=== PATIENT | male | born 1965 | race Caucasian/White ===

== ENCOUNTER 2017-05-05 14:11 | Emergency (ER) | payer OTHER ==
[2017-05-05] MEDS ORDERED: ALBUTEROL SO4 2.5/IPRATROPIUM 0.5 INH SOL 3 ML VIAL.NEB. NEB ONE (14:32)
[2017-05-05 14:42] VITALS: BMI 25.0
--- NOTE | 2017-05-05 14:44 | PDOC ---
Attending Attestation - Resident Resident Name: Batool Corona - ED Attending Attestation I have performed the following: I have examined & evaluated the patient, The case was reviewed & discussed with the resident, I agree w/resident's findings & plan, Exceptions are as noted - HPI HPI: 05/05/17 14:37 51y M hx of ESRD, s/p kidney resection presents for evaluation of AMS. Unclear onset, was noted to be hypotensive by EMS, but was normotensive on arrival, and was alert,m answering questions approrpitaely but was noted to be hypoxic down to 80s with wheezing/and rales at RLB. pt does endorse cough for a few days. denie sfever/chills, endorses persistent LLQ abd pain that is unchanged form prior. ROS limited due to clijical status GENERAL: The patient is alert, and fully oriented, tachypneic HEAD: Normocephalic, atraumatic. EYES: extraocular movements intact, sclera anicteric, conjunctiva clear. ENT: Normal voice, dry mucous membranes. NECK: Normal range of motion, supple LUNGS: wheezing b/l rales at R base HEART: Regular rate and rhythm, normal S1 and S2 without murmur, rub or gallop. ABDOMEN: ecchymosis with heeling scar on LLQ with tenderness, +flank ecchymosis , slightly warm to the touch over area of tenderness EXTREMITIES: Normal range of motion, no edema. NEUROLOGICAL: No facial assymetry, Normal speech, SKIN: Warm, Dry, normal turgor, ddx includes pna, atelectasis, anemia w/ high output heart failure, pe will ck albs will start pt on bipap and duonebs will reasses 05/05/17 16:37 pt noted anemic to 6.6, pt written for PRBCs awaiting CT, but I suspect his anemia may be secondary to post ob bleeding - will likely need surgical consult/transfer back to site pt currently hemodynamically stable, but +symtomatic anemia CRITICAL CARE DOCUMENTATION: I spent ~35 minutes of Critical Care time, excluding separately billable procedures, involving high complexity decision making to assess, manipulate and support vital system function(s) to treat single or multiple vital organ system failure and/or to prevent further life threatening deterioration of the patient' s condition. - Physicial Exam PE: 05/11/17 15:26 see above - Medical Decision Making 05/11/17 15:29 adrian whaley
--- NOTE | 2017-05-05 14:46 | PDOC ---
History of Present Illness - General Chief Complaint: Respiratory Distress Stated Complaint: WEAKNESS,SKIN DISCOLOR Time Seen by Provider: 05/05/17 14:35 - History of Present Illness Initial Comments: 05/05/17 14:45 51 y.o. male with a PMH of ESRD (on HD MWF), Seizure disorder (cannot recall last seizure activity) as well as recent (04/2017) L sided nephrectomy presents from [facility] c/o weakness, lightheadness and < 1 minute witnessed LOC. At presentation patient unable to provide HPI -- hypoxic to SpO2 80's. Past History - Past Medical History Allergies/Adverse Reactions: Allergies Allergy/AdvReac Type Severity Reaction Status Date / Time piperacillin [From Zosyn] Allergy Unknown Verified 05/05/17 15:32 tazobactam [From Zosyn] Allergy Unknown Verified 05/05/17 15:32 Home Medications: Ambulatory Orders Aspirin [ASA -] 81 mg PO DAILY #0 05/05/16 Famotidine 20 mg PO DAILY #0 05/05/16 Sevelamer Carbonate [Renvela -] 4 tab PO TID #0 05/05/16 Albuterol Sulfate [Proair Respiclick] 180 mcg IH Q6H PRN 05/05/17 Amlodipine Besylate 5 mg PO ASDIR 05/05/17 B-Complex with Vitamin C [Super B Complex-Vitamin C] 1 each PO DAILY 05/05/17 Docusate Sodium [Colace -] 100 mg PO TID 05/05/17 Ferrous Sulfate [Feosol] 325 mg PO DAILY 05/05/17 Folic Acid 1 mg PO DAILY 05/05/17 Labetalol HCl [Normodyne -] 200 mg PO BID 05/05/17 Levetiracetam 250 mg PO MOWEFR 05/05/17 traZODone HCL [Desyrel -] 50 mg PO HS 05/05/17 COPD: No Dialysis: Yes ([facility] (M-W-F)) Disorders: (ESRD-DIALYSIS: M/W/F) HTN: Yes Psychiatric Problems: Yes (DEPRESSION.) - Suicide/Smoking/Psychosocial Hx Smoking History: Never smoked Hx Alcohol Use: No Drug/Substance Use Hx: No Substance Use Type: None Review of Systems - Review of Systems Able to Perform ROS?: No *Physical Exam - Vital Signs Last Vital Signs Temp Pulse Resp BP Pulse Ox 98.1 F 80 16 113/81 80 L 05/05/17 14:35 05/05/17 14:35 05/05/17 14:35 05/05/17 14:35 05/05/17 14:35 - Physical Exam General Appearance: Yes: Obese, Other (toxic, rayo UE) HEENT: positive: EOMI, CAESAR. negative: TM Bulging, TM Dull, TM Erythema Neck: positive: Trachea midline, Supple Respiratory/Chest: positive: Labored Respiration, Wheezing (R > L). negative: Crackles, Rales Cardiovascular: positive: S1, S2. negative: JVD, Murmur Vascular Pulses: Dorsalis-Pedis (R): 2+, Doralis-Pedis (L): 2+ Gastrointestinal/Abdominal: positive: Tender, Soft, Other (LLQ surgical scar, LUQ surgical scar, L flank eccymosis) Male Genitalia: negative: inguinal hernia Musculoskeletal: positive: CVA Tenderness (L). negative: CVA Tenderness (R) Extremity: positive: Coldness Integumentary: positive: Dry, Cold, Clammy Neurologic: positive: Fully Oriented, Alert ED Treatment Course - LABORATORY CBC & Chemistry Diagram: 05/05/17 15:20 05/05/17 14:46 - RADIOLOGY Radiology Studies Ordered: Category Date Time Status CHEST X-RAY PORTABLE* [RAD] Stat Radiology 05/05/17 14:36 Ordered Medical Decision Making - Medical Decision Making 05/05/17 16:57 51 y.o. male presents with dyspnea. At presentation patient hypoxic SpO2 80' s. Patient started on BIPAP. CT Abdomen showed hemoperitoneum. Patient became hypotensive SPB 80's -- while awaiting transfusion. As T&S pending, patient given 2 unit O Negative Blood. Case d/w Dr. Escobedo (covering for patient' s urologist Dr. Mills) patient accepted for transfer. Rationale for transfer patient is 1 week post-operative from [facility] urologist. Case d/w Dr. Mcfadden and Dr. Amin from ED -- Dr. Mcfadden to accept patient @ ED. At discharge patient' s SBP improved to 100. Patient transferred to [facility]. *DC/Admit/Observation/Transfer Diagnosis at time of Disposition: Hemoperitoneum - Referrals Referrals: Isac Noland [Primary Care Provider] - - Patient Instructions - Post Discharge Activity
[2017-05-05 15:31] LABS: BASO % 0.5 % (0-2.0); HEMATOCRIT 20.6 % (35.4-49); LYMPH % 7.1 % (8-40); MCH 27.7 pg (25.7-33.7); MCHC 32.3 g/dl (32.0-35.9); MEAN CELL VOLUME 85.9 fl (80-96); MEAN PLT VOLUME 9.5 fl (7.5-11.1); MONO % 10.9 % (3.8-10.2); NEUT % 77.5 % (42.8-82.8); PLATELET COUNT 274 K/MM3 (134-434); RDW 16.3 % (11.9-15.9); WHITE BLOOD COUNT 6.4 K/mm3 (4.0-10.0)
[2017-05-05 15:54] LABS: INR 1.19 (0.82-1.09); PROTHROMBIN TIME (PATIENT) 13.4 SEC (9.98-11.88)
[2017-05-05 15:57] LABS: ACTIVATED PTT 26.4 SECONDS (26.9-34.4)
[2017-05-05 15:58] LABS: HEMOGLOBIN 6.6 GM/dL (11.7-16.9)
[2017-05-05 16:12] LABS: ALBUMIN 2.6 g/dl (3.4-5.0); ANION GAP 13 (8-16); BILIRUBIN,TOTAL 0.4 mg/dL (0.2-1.0); BLOOD UREA NITROGEN 34 mg/dL (7-18); CALCIUM 7.8 mg/dL (8.5-10.1); CHLORIDE 95 mmol/L (98-107); CO2 27 mmol/L (21-32); GLUCOSE,RANDOM 248 mg/dL (74-106); POTASSIUM 5.5 mmol/L (3.5-5.1); SGOT/AST 7 U/L (15-37); SGPT/ALT 6 U/L (12-78); SODIUM 135 mmol/L (136-145); TOT PROT 5.1 g/dl (6.4-8.2)
[2017-05-05 16:14] LABS: VENOUS PC02 41.6 mmHg (38-52); VENOUS PH 7.4 (7.32-7.42)
[2017-05-05 16:17] LABS: ALK PHOS 98 U/L (45-117); N-TERMINAL BNP 34676.61 pg/ml (5-125)
[2017-05-05 16:36] LABS: ARTERIAL BLD GAS O2 SATURATION 94.7 % (90-98.9); ARTERIAL BLOOD GAS BASE EXCESS 2.7 meq/l (-2-2); ARTERIAL BLOOD GAS PCO2 39.8 mmHg (35-45); ARTERIAL BLOOD GAS PO2 69.9 mmHg (80-100); ARTERIAL BLOOD GAS pH 7.44 (7.35-7.45)
[2017-05-05 16:44] LABS: CARBOXYHEMOGLOBIN 2.2 gm% (0.5-2.0)
[2017-05-05] MEDS ORDERED: SODIUM CHLORIDE 0.9% 500 ML INFUS.BAG IV ONE (17:02)
[2017-05-05 22:21] VITALS: BP 110/67; PULSE 78; TEMP 98.5
--- NOTE | 2017-05-06 10:41 | EKG ---
Test Reason : Blood Pressure : / mmHG Vent. Rate : 084 BPM Atrial Rate : 084 BPM P-R Int : 158 ms QRS Dur : 092 ms QT Int : 424 ms P-R-T Axes : 017 013 027 degrees QTc Int : 501 ms NORMAL SINUS RHYTHM PROLONGED QT ABNORMAL ECG WHEN COMPARED WITH ECG OF 02-MAY-2016 12:03, NO SIGNIFICANT CHANGE WAS FOUND Confirmed by TREMAYNE VINCENT MD ([id number]) on 05/06/2017 10:40:58 AM Referred By: Confirmed By:TREMAYNE VINCENT MD
== END 2017-05-05 22:21 | disposition short-term general hospital (02) ==
LOC: JER 14:11
PROC: 5A09357 Assistance with Respiratory Ventilation, Less than 24 Consecutive Hours, Continuous Positive Airway Pressure (ICD-10-PCS; principal; 2017-05-05)
DX: K66.1 Hemoperitoneum (principal); I12.0 Hypertensive chronic kidney disease with stage 5 chronic kidney disease or end stage renal disease; N18.6 End stage renal disease; N17.8 Other acute kidney failure; Z99.2 Dependence on renal dialysis; G40.909 Epilepsy, unspecified, not intractable, without status epilepticus; Z90.5 Acquired absence of kidney; F32.9 Major depressive disorder, single episode, unspecified
CPT/HCPCS: 36415; 36430; 36600; 71045-TC-FY; 74176-TC; 80053; 82375; 82803; 83050; 83605; 83880; 84484; 85025; 85610; 85730; 86850; 86900; 86901; 86922; 87040; 93005; 93010; 99285-25; P9058